=== PATIENT | female | born 1970 | race Caucasian/White ===

== ENCOUNTER → 2016-08-03 | Outpatient (CLI) | payer OTHER ==
[~2016-08-03] MED LIST: MINO50TA PO; SPIR100T2 PO; methylPREDNISolone 80 MG/ML (DEPO MEDROL) VIAL IM ONE
--- NOTE | 2016-08-04 16:21 | PAIN MANAGEMENT ---
Date of note: 08/03/2016 PROCEDURE: Epidural steroid injection C7-T1 under fluoroscopic guidance. TOTAL FLUOROSCOPIC TIME: 28 seconds. This is a 45-year-old patient under the care of Dr. Lenora Velez. Gloria presents with a long-standing history of cervical radicular pain. She has a cervical disc bulge. Her radiculopathy is bilateral in the dermatome levels of C6-C7, and C8 with C8 being the major component and C7 being the second. Informed consent was achieved for a epidural steroid injection at C7-T1. Orders for procedure verified. Patient denies any bleeding tendencies. After informed consent obtained, the patient was positioned for the cervical epidural steroid injection. The area was prepped and draped using aseptic technique. The skin and overlying tissues were localized with 3 mL of 1% Preservative-Free lidocaine using a 25-gauge needle. A 20-gauge Tuohy needle was advanced, using "loss of resistance" technique, to the epidural space. No blood, cerebral spinal fluid, pain, or paresthesia noted on entry of the epidural space. A 1 mL solution of Depo-Medrol 80 mg was injected slowly without mass volume effect. The patient was placed in supine position 15 minutes prior to being released with proper leg strength and vitals. Pre- and post procedure vital signs stable with no sensory or motor deficit noted. Instruction on followup contact and care provided to the patient.
== END ==
LOC: PMC 13:41
PROVIDERS: ATTEND Family Medicine
DX: M50.30 Other cervical disc degeneration, unspecified cervical region (principal); M54.12 Radiculopathy, cervical region